=== PATIENT | female | born 1980 | race Caucasian/White ===

== ENCOUNTER 2016-05-12 06:19 | Emergency (ER) | payer OTHER ==
[~2016-05-12] VITALS: Ht 180.3 cm; Wt 104.3 kg
[~2016-05-12 06:19] MED LIST: AMOXICILLIN875 MG PO; CLONIDINE HCL0.1 MG PO; SEROQUEL50 M1 PO
[2016-05-12 06:45] VITALS: BP 124/53
[2016-05-12] MEDS ORDERED: POLYTRIM EYE DR10 ML OPH (07:21)
--- NOTE | 2016-05-12 07:22 | ED EYE COMPLAINT ---
History of Present Illness General Chief Complaint: Eye Problems Stated Complaint: WOKE UP WITH R EYE PAIN +REDNESS Source: patient Exam Limitations: no limitations Vital Signs & Intake/Output Vital Signs & Intake/Output Vital Signs Date Time Temp Pulse Resp B/P Pulse O2 O2 Flow FiO2 Ox Delivery Rate 05/12 0645 97.2 85 18 124/53 98 Room Air Allergies Coded Allergies: Penicillins (RASH 08/24/15) venom-honey bee (bee venom (honey bee)) (UNKNOWN 08/24/15) Reconcile Medications Amoxicillin 875 MG TAB 1 TAB PO BID INFECTION Clonidine HCl 0.1 MG TABLET 1 TAB PO Q12 ANXIETY Polytrim (Polytrim Eye Drops) 10,000 UNIT-1 MG/ML DROPS 1 GTT OPH Q6 CONJUNCTIVITIS Quetiapine Fumarate (Seroquel) 50 MG TABLET 1 TAB PO QPM SLEEP Triage Note: PT STATES "IT FEELS LIKE THERE IS SOMETHING IN MY EYE, MAYBE I SCRATCHED IT, I DONT KNOW." PT STATES SHE WOKE UP THIS AM WITH HER R. EYE FEELING THIS WAY. PT'S EYE APPEARS TO BE RED AND WATERY. Triage Nurses Notes Reviewed? yes Onset: Abrupt Duration: hour(s): (FEW) Timing: single episode today Injury Environment: home Severity: moderate Right Eye Associated Symptoms: itching, eyelid redness, foreign body sensation : No Patient currently breastfeeds: No HPI: This is a 35-year-old female who presents to the ER with chief complaint of right eye redness and foreign body sensation that started this morning. No fever no chills. No recent URI symptoms or sick contacts that she is aware. Patient is not a contact lens wearer. She states she has been rubbing her eye. It is more itchy than painful. No light sensitivity. Past History Travel History Traveled to [place] past 21 day No Medical History Any Pertinent Medical History? see below for history Neurological: migraine EENT: NONE Cardiovascular: NONE Respiratory: asthma Gastrointestinal: NONE Hepatic: NONE Renal: NONE Musculoskeletal: NONE Psychiatric: depression, insomnia, IV drug abuse, opioid dependence, substance abuse Endocrine: NONE Blood Disorders: NONE Cancer(s): NONE [employer]/Reproductive: NONE History of MRSA: No History of VRE: No History of CDIFF: No Surgical History Surgical History: non-contributory Psychosocial History Who do you live with Other (see notes) What is your primary language Bulgarian Tobacco Use: Current Daily Use Daily Tobacco Use Amount/Type: => 5 Cigarettes daily ETOH Use: denies use Illicit Drug Use: denies illicit drug use Family History Hx Contributory? No Review of Systems Review of Systems Constitutional: Denies: chills, fever. Eyes: Reports: foreign body sensation, pain. Ear: Reports: no symptoms. Nose: Reports: no symptoms. Mouth: Reports: no symptoms. Throat: Reports: no symptoms. Respiratory: Denies: cough, short of breath. Cardiovascular: Denies: chest pain. GI: Denies: abdominal pain. Genitourinary: Reports: no symptoms. Musculoskeletal: Reports: no symptoms. Skin: Reports: no symptoms. Neurological/Psychological: Reports: no symptoms. Hematologic/Endocrine: Denies: bruising, bleeding, polyuria, polydipsia. Immunologic/Allergic: Denies: splenectomy. All Other Systems: Reviewed and Negative Physical Exam General Appearance: well developed/nourished, mild distress General Inspection: normal inspection General Inspection: normal inspection Eyelid: normal inspection Conjunctiva/Sclera: injected Cornea: examined w/fluorescein EOM: intact Pupil: normal accommodation, normal pupil, PERRL Physical Exam Head: atraumatic Nose: normal inspection Mouth/Throat: normal mouth inspection Neck: normal inspection, supple Cardiovascular/Respiratory: normal breath sounds, regular rate/rhythm Neurologic/Psych: awake, alert, oriented x 3, normal mood/affect Progress Differential Diagnosis: corneal abrasion, corneal foreign body, conjunctivitis Plan of Care: F/U OPTHO Departure Departure Time of Disposition: 720 Disposition: HOME OR SELF CARE Condition: Stable Clinical Impression Primary Impression: Conjunctivitis Secondary Impressions: Corneal abrasion Referrals: PATIENT HAS NO PRIMARY CARE DR (PCP/Family) Additional Instructions: Use the eyedrops as directed and follow-up with the eyeglass frame truer listed. Return to the ER for any changing or worsening symptoms. Strict handwashing to avoid spreading the infection to your left eye. Departure Forms: Customer Survey General Discharge Information Prescriptions: Current Visit Scripts Polytrim (Polytrim Eye Drops) 1 GTT OPH Q6 #10 ML
== END 2016-05-12 07:22 ==
LOC: ERH 06:19
DX: S05.01XA Injury of conjunctiva and corneal abrasion without foreign body, right eye, initial encounter (principal); H10.9 Unspecified conjunctivitis; X58.XXXA Exposure to other specified factors, initial encounter